=== PATIENT | female | born 1975 | race Caucasian/White ===

== ENCOUNTER 2020-08-05 09:35 | Outpatient (REF) | payer OTHER, SELFPAY ==
[2020-08-05 11:57] LABS: TSH reflex Free T4 0.93 mIU/mL (0.32-4.0)
[2020-08-07 18:37] LABS: Follicle Stimulating Hormone 88.2 mIU/mL; Prolactin 5.8 ng/mL
== END 2020-08-05 09:36 | disposition home or self-care (01) ==
LOC: HO.LAB 09:35
PROVIDERS: PCP Internal Medicine; Referring Provider Internal Medicine; Visit Provider Obstetrics & Gynecology
DX: Z01.419 Encounter for gynecological examination (general) (routine) without abnormal findings (principal); N93.9 Abnormal uterine and vaginal bleeding, unspecified
CPT/HCPCS: 83001; 84146; 84443

== ENCOUNTER → 2020-10-16 08:21 | Outpatient (BNVA) | payer OTHER, SELFPAY | PROVIDERS: Visit Provider Obstetrics & Gynecology | DX: Z30.432 Encounter for removal of intrauterine contraceptive device (principal) | CPT/HCPCS: 58301 ==

== ENCOUNTER 2021-03-12 08:00 | Outpatient (RCR) | payer OTHER, SELFPAY ==
--- NOTE | 2021-01-22 12:17 | MHC.PT.EP ---
[facility] [place] Office [place] Office [place] Office [address] [phone] F: [phone] F: [phone] F: [phone] F: [phone] Physical Therapy Plan of Care Date of Evaluation: 01/22/21 Date of Surgery: NA Diagnosis: LOW BACK/HIP PAIN. Pt REPORTS NOT BACK PAIN BUT L HIP AND BUTTOCK PAIN Assessment: Pt IS 45 YO F REFERRED TO PT WITH L HIP/GLUT PAIN. REPORTS HAD PT 4 X OVER THE YEARS WITH GOOD RESULTS. REPORTS TOOK BREAK FROM EXERCISE OVER THE WINTER AND HIP IS JUST STARTING TO BOTHER HER AGAIN. WAS AT YEARLY CHECK UP AND MENTIONED IT TO MD WHO REFERRED HER TO PT. 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 SOME LIMITED STRENGTH IN L GLUT AREA WITH HIP MM TIGHTNESS. HAS BENEFITTED FROM PT IN THE PAST, SHOULD BENEFIT AT THIS TIME. Frequency and Duration: The patient will be seen 2X/WK X 4 WKS Short Term Goals: 1. INCREASED AWARENESS HIP CARE AND POSTURE 2. IMPROVED PELVIC SYMMETRY [employer] Goals: 1. DECREASED HIP PAIN AT LEAST 50% WITH ADLS 2. IMPROVED LEFI 3. I HEP WITH DC EX PLAN Treatment Plan: Modalities to reduce pain, spasms and effusion. Manual therapy to restore motion and function. Therapeutic exercise to improve strength and flexibility. Neuromuscular re-education for posture and balance. Therapeutic activities to return to functional activities of daily living. Electronically signed by: BRADLEY GRIMES PT Please sign and return to therapist. Thank you for your referral.
--- NOTE | 2021-04-09 14:09 | MHC.PT.DC ---
[facility] [place] Office [place] Office [place] Office [address] Maria Del Carmen Cardoza [address] [phone] F: [phone] F: [phone] F: [phone] F: [phone] Physical Therapy Discharge Report Diagnosis: LOW BACK/HIP PAIN. Pt REPORTS NOT BACK PAIN BUT L HIP AND BUTTOCK PAIN Date of Surgery: NA Date of Evaluation: 01/22/21 Date of Discharge: Treatments to Date: 6 Cancellations to Date: 2 No Shows to Date: 1 Discharge Status: Discharge Summary: Pt LAST SEEN ON 03/12. SHE REPORTS NO SIGNIFICANT CHANGE IN SXS. THE PLAN WAS TO ASSESS LIFT AND REV GOALS NEXT SESSION FOR PROBABLE DC BUT THEN SHE NO SHOWED (?) Electronically signed by: BRADLEY GRIMES PT Please sign and return to therapist. Thank you for your referral.
== END 2021-04-09 14:09 | disposition home or self-care (01) ==
LOC: HO.PT 08:00
PROVIDERS: PCP Internal Medicine; Visit Provider Internal Medicine
DX: M54.5 Low back pain (principal)
CPT/HCPCS: 97110; 97140; 97161

== ENCOUNTER → 2021-08-10 09:21 | Outpatient (BNVA) | payer OTHER, SELFPAY | PROVIDERS: PCP Internal Medicine; Visit Provider Advanced Practice Midwife ==

== ENCOUNTER 2022-07-04 15:00 | Outpatient (RCR) | payer OTHER, SELFPAY ==
--- NOTE | 2022-06-24 12:40 | MHC.PT.EP ---
[facility] [place] [facility] [place] Office [place] Office [address] Maria Del Carmen Cardoza [address] [phone] F: [phone] F: [phone] F: [phone] F: [phone] Physical Therapy Plan of Care Date of Evaluation: Date of Surgery: Diagnosis: LBP Assessment: pt is a 47 y/o female presenting to physical therapy w/ referring diagnosis of lbp. Working diagnoses include lumbar radiculopathy, SI dysfunction, and spasm/strain of the lumbar paraspinals. Impairments include pain, decreased range of motion, decreased strength, impaired functional mobility, impaired postural awareness, and altered gait mechanics. pt is a good candidate for skilled PT due to age, potential remediation of impairments, typical disease/condition progression and prognosis, comorbidities, and motivation. pt would benefit from skilled PT intervention to provide a tailored strengthening and stretching exercise program, functional training, gait training, postural re-training, neuromuscular re-education, modalities as needed for pain, equipment safety demonstration. Frequency and Duration: The patient will be seen 2x/wk for 4 wks Short Term Goals: pt will be I w/ HEP to promote self-management of condition. pt will demo proper sitting posture w/ lumbar roll to promote neutral spine w/ seated ADLs. pt will improve lumbar flexion by 25% to promote ease in lower body dressing. Shelter Goals: pt will demo proper lifting mechanics w/o verbal cueing x5 reps of 15# object from floor to waist height to promote return to functional lifting. pt will report a statistically significant improvement in self-reported outcome measure, Ravi, to promote return to PLOF. Treatment Plan: Modalities to reduce pain, spasms and effusion. Manual therapy to restore motion and function. Therapeutic exercise to improve strength and flexibility. Neuromuscular re-education for posture and balance. Therapeutic activities to return to functional activities of daily living. Electronically signed by: Lisa Rivera PT, DPT Please sign and return to therapist. Thank you for your referral.
--- NOTE | 2022-07-28 17:11 | MHC.PT.DC ---
[facility] [place] Office [place] Office [place] Office [address] Maria Del Carmen Cardoza [address] [phone] F: [phone] F: [phone] F: [phone] F: [phone] Physical Therapy Discharge Report Diagnosis: LBP Date of Surgery: Date of Evaluation: 06/24/22 Date of Discharge: 07/28/22 Treatments to Date: 3 Cancellations to Date: 3 No Shows to Date: 2 Discharge Status: Visit Non-compliance Discharge Summary: The patient arrived at her second follow-up visit and stated her back pain was cured. She no showed her last couple of visits. There was a question of a potential COVID exposure. She has not followed-up with any additional visits in three weeks. She was given a home exercise program to address range of motion and strength deficits. She is discharged from this physical therapy plan of care for visit non-compliance. Electronically signed by: Lisa Rivera PT, DPT Please sign and return to therapist. Thank you for your referral.
== END 2022-07-28 17:11 | disposition home or self-care (01) ==
LOC: HO.PT 15:00
PROVIDERS: PCP Internal Medicine; Visit Provider Internal Medicine
DX: M54.50 Low back pain, unspecified (principal)
CPT/HCPCS: 97110; 97112; 97162

== ENCOUNTER 2022-09-29 08:11 | Day surgery (SDC) | payer OTHER, SELFPAY ==
[2022-09-26 11:29] VITALS: BMI 35.5
--- NOTE | 2022-09-28 12:20 | P.CONAN_ITS ---
Documented by User: Ivette Leary NP 09/28/22 12:21 HPI - Anesthesia Eval Consult details Narrative: 47yo F for Colonoscopy PMFSH Active Problems Active Problems: All Active Problems (Updated 12/16/21 @ 12:00 by Marie Ramirez MD) ADHD (Acute) Family history of colon cancer in mother (Acute) Physical exam (Acute) Encounter for annual routine gynecological examination (Acute) Mild asthma (Acute) Low back pain (Acute) Leukopenia (Acute) Dyslipidemia (Acute) Obesity (BMI 30.0-34.9) (Acute) Past Medical History Medical History ADHD Dyslipidemia Family history of colon cancer in mother Leukopenia Low back pain Mild asthma Physical exam Family History Family History Father Prostate CA Hypertension Skin cancer Mother Colon cancer, Onset Age: 81 Diabetes Skin cancer Liver cancer Brother Melanoma Family/Other Mental health disorder Substance use disorder Surgical History Surgical History H/O: History of appendectomy Hx of colonoscopy Social History Social History Housing: House Alcohol intake: never Patient Tobacco Use Status: Never used Tobacco e-Cigarette/Vaping Use: Never Used Second Hand Smoke Exposure: No service: No Current occupational status: employed Current occupation: [employer] Current occupational exposures/hazards: No Sexual orientation: Straight/Heterosexual Gender identity: Female Meds Allergies Allergy/AdvReac Type Severity Reaction Status Date / Time seasonal Allergy Mild sneezing Uncoded 08/16/22 10:02 Home Medications Medication Instructions Recorded Confirmed Last Taken Type dextroamphetamine-amphetamine ER 1 cap PO QAM 08/16/22 Unknown History 10 mg 24hr capsule,extend release Exam Exam Date and Time: September 28, 2022 1220 Height,Weight and Vital Signs: Height 5 ft 6 in Weight 99.79 kg Assessment and Plan Assessment Anesthesia Assessment: Chart Reviewed Documented by User: Cristobal Bowser MD 09/29/22 14:30 PMFSH Past Medical History Medical History ADHD Dyslipidemia Family history of colon cancer in mother Leukopenia Low back pain Mild asthma Physical exam Family History Family History (Reviewed 08/16/22 @ 12: by Itzel Sparks CNM) Father Prostate CA Hypertension Skin cancer Mother Colon cancer, Onset Age: 81 Diabetes Skin cancer Liver cancer Brother Melanoma Family/Other Mental health disorder Substance use disorder Family history of problems with anesthesia: No Surgical History Surgical History (Reviewed 08/16/22 @ 12: by Itzel Sparks CNM) H/O: History of appendectomy Hx of colonoscopy History of Problems with Anesthesia: No Social History Social History (Reviewed 08/16/22 @ 12: by Itzel Sparks CNM) Housing: House Alcohol intake: never Patient Tobacco Use Status: Never used Tobacco e-Cigarette/Vaping Use: Never Used Second Hand Smoke Exposure: No service: No Current occupational status: employed Current occupation: [employer] Current occupational exposures/hazards: No Sexual orientation: Straight/Heterosexual Gender identity: Female Meds Allergies Allergy/AdvReac Type Severity Reaction Status Date / Time seasonal Allergy Mild sneezing Uncoded 08/16/22 10:02 Home Medications Medication Instructions Recorded Confirmed Last Taken Type dextroamphetamine-amphetamine ER 1 cap PO QAM 08/16/22 Unknown History 10 mg 24hr capsule,extend release Exam Airway Mallampati Class: III TM Dist: >3cm Neck ROM: Full Loose/Missing/Broken Teeth: Yes (chipped front tooth ) Heart: S1,S2 Lungs: b/l breath sounds Assessment and Plan Assessment Anesthesia Assessment: Anesthesia Plan Discussed Final Anesthetic Review Family History of Problems with Anesthesia: No History of Problems with Anesthesia: No NPO: Yes ASA Class: II Final Preanesthetic Review: Meds/Allgs Chart Reviewed, Consent Obtained/Reviewed and Anes Risks/Benef Reviewed Patient Risk: Intermediate Procedure Risk: Intermediate Anesthetic Plan Anesthetic Plan: MAC: Disposition: Standard PACU
[2022-09-29 08:45] VITALS: BP 119/76; PULSE 70; RESP 16; TEMP 36.8; O2SAT 99
--- NOTE | 2022-09-29 08:50 | MHC.SHP ---
Pre-Procedural Eval Section A Date of Service: 09/29/22 Section B Chief Complaint: screening Details of Present Illness: mother with CRC Relevant Family History (Specify if Yes): Yes Relevant Social History: None Present Medications: see Short Stay Collaborative assessment Medical History: Significant History (ADHD Dyslipidemia Family history of colon cancer in mother Leukopenia Low back pain Mild asthma Physical exam) History of Previous Operations: Relevant previous surgery/procedure and date(s) (H/O: History of appendectomy Hx of colonoscopy) Allergies: Allergies Allergy/AdvReac Type Severity Reaction Status Date / Time seasonal Allergy Mild sneezing Uncoded 08/16/22 10:02 Review of Systems Sugical H&P ROS: Negative: Constitution, Cardiovascular, Respiratory, Neurological, Psychiatric, Hem-Onc, Allergic/Immunologic, Gastrointestinal, Genitourinary, Musculoskeletal, Integumentary, Endocrine and Eyes/Ears/Nose/Throat Exam Surgical H&P Exam: Normal: HEENT, Normal: Heart, Normal: Lungs, Normal: Extremities, Normal: Abdomen, Normal: Skin and Normal: Neurological Plan Diagnosis/Plan: Unchanged I have reviewed the history and physical and performed a pertinent physical examination on my patient. No changes have occurred unless specified. Time Spent With Patient Time: Total time managing care of this patient today ____ minutes.
--- NOTE | 2022-09-29 08:51 | P.OP_ITS ---
Operative Note Operative Note Date of Service: 09/29/22 Narrative: Operative Information Procedure Description: Colonoscopy Indication: screening Anesthesia: MAC COLONOSCOPY Instrument: Olympus variable stiffness pediatric scope 190L Colonoscopy Monitoring: Vital signs and clinical assessment, continuous EKG monitoring, Pulse oximetry, Carbon Dioxide monitoring and blood pressure monitoring were done throughout the procedure. Colon withdrawal time was 13 minutes. Procedure: The patient was placed in the left lateral decubitis position and pre-procedure medications were administered. After a digital rectal examination of the ano-rectum, the video colonoscope was inserted into the rectum and advanced through the colon to the cecum/TI. The colonoscope was slowly withdrawn in a retrograde panoramic fashion and the colon mucosa was carefully examined including a retroflexed view of the rectum. Findings and interventions are described below. Procedure Difficulty: easy Findings: Terminal Ileum-normal Cecum:normal Ascending Colon: 10 mm sessile polyp removed with cold snare Transverse Colon -normal Descending Colon:normal Sigmoid Colon: mild diverticulosis Rectum: Retroflexion with small internal hemorrhoids, grade I, x 4 sessile polyps 10-12 mm removed with cold snare Anorectum - normal Colon preparation: [place] Bowel Preparation Scale Right colon; 3 Transverse colon: 3 Left colon; 3 (0 = Unprepared colon segment with mucosa not seen due to solid stool that cannot be cleared. 1 = Portion of mucosa of the colon segment seen, but other areas of the colon segment not well seen due to staining, residual stool and/or opaque liquid. 2 = Minor amount of residual staining, small fragments of stool and/or opaque liquid, but mucosa of colon segment seen well. 3 = Entire mucosa of colon segment seen well with no residual staining, small fragments of stool or opaque liquid) Impression and Post Procedure Diagnosis: polyps internal hemorrhoids diverticular disease Plan: High fiber diet leaflet Avoid straining at stool, epsom salts and sitz bath, anusol supps or cream Repeat Colonoscopy in 3-5 years due to polyps or earlier if clinically indicated Above findings were reviewed with the patient and relevant handouts were provided if indicated.
[2022-09-29 08:53] LABS: UPreg QC Valid YES; Urine Pregnancy NEGATIVE (NEGATIVE)
[2022-09-29] MEDS: Lactated Ringers 1,000 ML 100 ML IVCONT (09:04)
[2022-09-29 09:58] VITALS: BP 103/55; PULSE 83; RESP 16; TEMP 36.3; O2SAT 97
[2022-09-29 10:13] VITALS: BP 102/63; PULSE 65; RESP 16; TEMP 36.3; O2SAT 97
== END 2022-09-29 12:46 | disposition home or self-care (01) ==
PROVIDERS: Nurse Practitioner; PCP Internal Medicine; Visit Provider Internal Medicine Gastroenterology
PROC: 0DJD8ZZ Inspection of Lower Intestinal Tract, Via Natural or Artificial Opening Endoscopic (ICD-10-PCS; CPT 45378; principal; 2022-09-29 09:20)
DX: Z12.11 Encounter for screening for malignant neoplasm of colon (principal); Z80.0 Family history of malignant neoplasm of digestive organs; D12.2 Benign neoplasm of ascending colon; K62.1 Rectal polyp; K57.30 Diverticulosis of large intestine without perforation or abscess without bleeding; K64.0 First degree hemorrhoids; J45.909 Unspecified asthma, uncomplicated; D72.819 Decreased white blood cell count, unspecified; E78.5 Hyperlipidemia, unspecified; F90.9 Attention-deficit hyperactivity disorder, unspecified type; Z79.899 Other long term (current) drug therapy
CPT/HCPCS: 45385; 81025; 88300; 88305